=== PATIENT | female | born 1940 | race Caucasian/White ===

== ENCOUNTER → 2018-04-18 | Outpatient (CLI) | payer MEDICARE, OTHER ==
[~2018-04-18] MED LIST: ASPI-515 PO; FURO-93 PO; LISI5TAB7 PO; NICO-486 TD; POTA20TA91 PO; SPIR25TA PO
== END | disposition home or self-care (01) ==
LOC: ROC 12:52
PROVIDERS: ATTEND Radiology Radiation Oncology
DX: C44.90 Unspecified malignant neoplasm of skin, unspecified (principal)
CPT/HCPCS: G0463

== ENCOUNTER 2018-07-04 08:12 | Outpatient (CLI) | payer MEDICARE, OTHER | END 2018-07-04 23:59 | disposition home or self-care (01) | LOC: ROC 08:12 | PROVIDERS: ATTEND Radiology Radiation Oncology | DX: Z08 Encounter for follow-up examination after completed treatment for malignant neoplasm (principal); C44.622 Squamous cell carcinoma of skin of right upper limb, including shoulder; Z88.1 Allergy status to other antibiotic agents; Z88.5 Allergy status to narcotic agent | CPT/HCPCS: G0463 ==

== ENCOUNTER → 2018-08-23 | Outpatient (CLI) | payer MEDICARE, OTHER | END | disposition home or self-care (01) | LOC: EDSTATUS 07-12 07:30 → ROC 08:49 | PROVIDERS: ATTEND Radiology Radiation Oncology | DX: Z08 Encounter for follow-up examination after completed treatment for malignant neoplasm (principal); C44.622 Squamous cell carcinoma of skin of right upper limb, including shoulder; Z79.899 Other long term (current) drug therapy; Z79.01 Long term (current) use of anticoagulants; Z88.0 Allergy status to penicillin; Z88.2 Allergy status to sulfonamides | CPT/HCPCS: G0463 ==

== ENCOUNTER 2018-12-31 12:31 | Outpatient (CLI) | payer MEDICARE, OTHER | END 2018-12-31 23:59 | disposition home or self-care (01) | LOC: CFH 12:31 | PROVIDERS: ATTEND Radiology Radiation Oncology | DX: Z12.2 Encounter for screening for malignant neoplasm of respiratory organs (principal); I25.10 Atherosclerotic heart disease of native coronary artery without angina pectoris; Z87.891 Personal history of nicotine dependence | CPT/HCPCS: G0297 ==

== ENCOUNTER 2019-06-13 21:43 | Inpatient (IN) | payer MEDICARE, OTHER ==
[~2019-06-13] VITALS: Ht 157.5 cm; Wt 48.2 kg
--- NOTE | 2019-06-13 21:45 | NUR ---
PG AGILE DEVELOPER AHEAD OF TIME PER STEMI PRE ALERT OVER THE RADIO @2130 PG CARDS @2134 PG CODE CARDIAC @2136
[2019-06-13] MEDS ORDERED: APIX5TAB PO (21:56)
[2019-06-13] MEDS ORDERED: CARV3.1212 PO (21:56)
[2019-06-13] MEDS ORDERED: FURO-93 PO (21:56)
[2019-06-13] MEDS ORDERED: LISI2.5T PO (21:56)
[2019-06-13] MEDS ORDERED: FENTANYL PF 100 MCG/2ML ONE (21:56)
[2019-06-13] MEDS ORDERED: SPIR25TA5 PO (21:56)
[2019-06-13] MEDS ORDERED: LIDOCAINE 2%, 20ML ONE (21:57)
[2019-06-13] MEDS ORDERED: MIDAZOLAM 1 MG/ML, 5ML ONE (21:57)
[2019-06-13] MEDS ORDERED: VERAPAMIL 2.5 MG/ML, 2ML ONE (21:57)
[2019-06-13] MEDS ORDERED: HEPARIN 1,000 UNITS/ML, 10ML ONE (21:57)
[2019-06-13] MEDS ORDERED: TICAGRELOR 90 MG TABLET ONE (21:57)
[2019-06-13] MEDS ORDERED: BIVALIRUDIN 250 MG ONE (21:57)
[2019-06-13] MEDS ORDERED: SODIUM CHLORIDE FLUSH 10ML SYR IVF ONE (22:00)
--- NOTE | 2019-06-13 22:03 | NUR ---
CODE CARDIAC CANCELLED PER DR ROTHMAN
[2019-06-13 22:04] LABS: BASOPHILS # (AUTO) 0.07 x10^3/uL (0-0.1); BASOPHILS % (AUTO) 1 % (0-1); EOSINOPHILS # (AUTO) 0.11 x10^3/uL (0-0.4); EOSINOPHILS % (AUTO) 1 % (1-7); LYMPHOCYTES # (AUTO) 4.68 x10^3/uL (1-3.4); LYMPHOCYTES % (AUTO) 40 % (22-44); MD NO; MEAN CORPUSCULAR HEMOGLOBIN 32.7 pg (27.0-34.8); MEAN CORPUSCULAR HGB CONC 33.3 g/dL (32.4-35.8); MEAN CORPUSCULAR VOLUME 98.4 fL (80-100); MEAN PLATELET VOLUME 8.9 fL (7.4-10.4); MONOCYTES # (AUTO) 0.68 x10^3/uL (0.2-0.8); MONOCYTES % (AUTO) 6 % (2-9); NEUTROPHILS # (AUTO) 6.31 x10^3/uL (1.8-6.8); NEUTROPHILS % (AUTO) 53 % (42-75); PLATELET COUNT 237 x10^3/uL (130-400); RED BLOOD COUNT 4.52 x10^6/uL (3.82-5.3); RED CELL DISTRIBUTION WIDTH 13.9 % (9.6-15.2)
[2019-06-13] MEDS ORDERED: LORazepam 2 MG/ML, 1ML ONE (22:14)
[2019-06-13] MEDS ORDERED: methylPREDNISolone SOD SUCC 125 MG/2 ML ONE (22:14)
[2019-06-13 22:16] LABS: INTERNATIONAL NORMALIZED RATIO 0.99 (0.93-1.1); PROTHROMBIN TIME 10.5 Seconds (9.6-11.5)
[2019-06-13 22:18] LABS: ALBUMIN 3.8 g/dL (3.4-5.0); ANION GAP 8 mmol/L (5-15); CALCIUM 8.4 mg/dL (8.5-10.1); CHLORIDE 95 mmol/L (98-107)
[2019-06-13 22:23] LABS: ALANINE AMINOTRANSFERASE 37 U/L (12-78); ALKALINE PHOSPHATASE 92 U/L (45-117); BILIRUBIN,TOTAL 0.9 mg/dL (0.2-1.0); CREATININE 0.98 mg/dL (0.55-1.02); TOTAL PROTEIN 6.9 g/dL (6.4-8.2)
--- NOTE | 2019-06-13 22:25 | NUR ---
PT MEDICATED PER JUL. PT TOLERATING BIPAP WELL. [facility] WAS CALLED PER PTS REQUEST.
[2019-06-13] MEDS ORDERED: LORazepam 2 MG/ML, 1ML IVPush ONE (22:30)
[2019-06-13] MEDS ORDERED: methylPREDNISolone SOD SUCC 125 MG/2 ML IM ONE (22:30)
--- NOTE | 2019-06-13 22:30 | NUR ---
CONSULTED WITH . HE STATES NO ABX NEEDED AT THIS TIME.
[2019-06-13] MEDS ORDERED: FUROSEMIDE 40 MG/4 ML ONE (22:39)
--- NOTE | 2019-06-13 22:57 | NUR ---
FAMILY NOW AT BEDSIDE. POC DISCUSSED. FAMILY DENIES CURRENT NEEDS. PT RESTING COMFORTABLY AT THIS TIME.
[2019-06-13] MEDS ORDERED: ALBUTEROL/IPRATROPIUM 2.5MG/0.5MG, 3 ML NPPB SCH (23:00)
[2019-06-13] MEDS ORDERED: FUROSEMIDE 40 MG/4 ML IV ONE (23:00)
--- NOTE | 2019-06-13 23:02 | NUR ---
DR DESOUZA AT BEDSIDE
--- NOTE | 2019-06-13 23:45 | NUR ---
PT ASSISTED WITH BEDPAN. APPROX 300ML OUT. PT DENIES FURTHER NEEDS AT THIS TIME. AWAITING ADMIT BED.
[2019-06-13] MEDS ORDERED: ALBUTEROL/IPRATROPIUM 2.5MG/0.5MG, 3 ML ONE (23:53)
[2019-06-14] MEDS ORDERED: ACETAMINOPHEN 325 MG TABLET PO PRN
[2019-06-14] MEDS ORDERED: methylPREDNISolone SOD SUCC 125 MG/2 ML IVPush SCH
[2019-06-14] MEDS ORDERED: ENALAPRILAT 1.25 MG/ML, 2ML IVPush PRN
[2019-06-14] MEDS ORDERED: ONDANSETRON 2MG/ML, 2ML IVPush PRN
[2019-06-14] MEDS ORDERED: OMNIPAQUE 350 MG/ML, 100ML BOTTLE ONE (00:06)
--- NOTE | 2019-06-14 00:17 | NUR ---
REPORT GIVEN TO GURU CCU RN
[2019-06-14 00:45] VITALS: BP 118/54
[2019-06-14 04:00] VITALS: BP 100/47
[2019-06-14] MEDS: methylPREDNISolone SOD SUCC 125 MG/2 ML IVPush SCH ×4 (04:26→22:26)
[2019-06-14 04:34] LABS: BASOPHILS # (AUTO) 0.01 x10^3/uL (0-0.1); BASOPHILS % (AUTO) 0 % (0-1); EOSINOPHILS % (AUTO) 0 % (1-7); LYMPHOCYTES % (AUTO) 9 % (22-44); MD NO; MEAN CORPUSCULAR HEMOGLOBIN 32.4 pg (27.0-34.8); MEAN CORPUSCULAR HGB CONC 33.1 g/dL (32.4-35.8); MEAN CORPUSCULAR VOLUME 97.8 fL (80-100); MEAN PLATELET VOLUME 8.9 fL (7.4-10.4); MONOCYTES # (AUTO) 0.11 x10^3/uL (0.2-0.8); MONOCYTES % (AUTO) 2 % (2-9); NEUTROPHILS # (AUTO) 6.34 x10^3/uL (1.8-6.8); NEUTROPHILS % (AUTO) 90 % (42-75); PLATELET COUNT 217 x10^3/uL (130-400); RED CELL DISTRIBUTION WIDTH 13.2 % (9.6-15.2)
[2019-06-14 04:45] LABS: ANION GAP 9 mmol/L (5-15); CALCIUM 8.9 mg/dL (8.5-10.1); CHLORIDE 96 mmol/L (98-107); CHOLESTEROL, TOTAL 240 mg/dL (140-239); CREATININE 0.73 mg/dL (0.55-1.02); TRIGLYCERIDES 37 mg/dL (50-200); VLDL CHOLESTEROL 7 mg/dL (0-25)
[2019-06-14 04:50] LABS: CHOL/HDL RATIO 2.4; HDL CHOL % 42 % (28-40); HDL CHOLESTEROL (DIRECT) 100 mg/dL (40-60); LDL CHOLESTEROL,CALCULATED 133 mg/dL (54-169); LDL/HDL RATIO 1.3 (0.5-3.0)
[2019-06-14] MEDS: LISINOPRIL 5 MG TABLET PO SCH (08:25)
[2019-06-14] MEDS: FUROSEMIDE 20 MG/2 ML IV SCH ×2 (08:25→17:53)
[2019-06-14] MEDS: CARVEDILOL 3.125 MG TABLET PO SCH ×2 (08:26→22:24)
[2019-06-14] MEDS: SPIRONOLACTONE 25 MG TABLET PO SCH (09:00)
[2019-06-14] MEDS ORDERED: ASPIRIN 81 MG TABLET EC PO SCH (09:00)
[2019-06-14] MEDS ORDERED: APIXABAN 5 MG TABLET PO SCH ×2 (09:00→21:00)
[2019-06-14 11:05] LABS: TROPONIN I 0.217 ng/mL (0.000-0.045)
[2019-06-14 20:17] VITALS: BP 101/53
[2019-06-14 21:36] VITALS: BP 101/53
[2019-06-14] MEDS: ATORVASTATIN 40 MG TABLET PO SCH (22:25)
[2019-06-14 22:31] VITALS: BP 105/57
[2019-06-15 00:08] VITALS: BP 107/57
[2019-06-15] MEDS: methylPREDNISolone SOD SUCC 125 MG/2 ML IVPush SCH (04:43)
[2019-06-15 05:16] LABS: ANION GAP 11 mmol/L (5-15); CALCIUM 8.7 mg/dL (8.5-10.1); CHLORIDE 92 mmol/L (98-107)
[2019-06-15 05:19] LABS: CREATININE 0.88 mg/dL (0.55-1.02)
[2019-06-15] MEDS: FUROSEMIDE 20 MG/2 ML IV SCH (07:30)
[2019-06-15 07:34] VITALS: BP 112/59
[2019-06-15] MEDS ORDERED: REGADENOSON 0.4 MG/5 ML SYRINGE ONE (08:36)
[2019-06-15] MEDS: APIXABAN 2.5 MG TABLET PO SCH ×2 (10:30→22:47)
[2019-06-15] MEDS ORDERED: methylPREDNISolone SOD SUCC 40 MG/ML IVPush SCH (10:30)
[2019-06-15] MEDS: DOXYCYCLINE 100MG TABLET PO SCH ×2 (10:31→22:47)
[2019-06-15] MEDS: LISINOPRIL 5 MG TABLET PO SCH (10:31)
[2019-06-15] MEDS: CARVEDILOL 3.125 MG TABLET PO SCH (10:31)
[2019-06-15] MEDS: SPIRONOLACTONE 25 MG TABLET PO SCH (10:31)
[2019-06-15 16:24] VITALS: BP 100/52
[2019-06-15 19:36] VITALS: BP 108/44
[2019-06-15 20:00] VITALS: BP 111/54
[2019-06-15] MEDS ORDERED: CARVEDILOL 6.25 MG TABLET PO SCH (21:00)
[2019-06-15] MEDS: ATORVASTATIN 40 MG TABLET PO SCH (22:46)
[2019-06-15 22:57] VITALS: BP 112/57
[2019-06-16 02:22] VITALS: BP 95/51
[2019-06-16 07:01] VITALS: BP 110/63
[2019-06-16] MEDS: DOXYCYCLINE 100MG TABLET PO SCH (08:14)
[2019-06-16] MEDS: APIXABAN 2.5 MG TABLET PO SCH (08:15)
[2019-06-16] MEDS: SPIRONOLACTONE 25 MG TABLET PO SCH (08:15)
[2019-06-16] MEDS: LISINOPRIL 5 MG TABLET PO SCH (08:15)
[2019-06-16] MEDS ORDERED: FUROSEMIDE 20 MG/2 ML IV SCH (09:00)
[2019-06-16] MEDS ORDERED: FUROSEMIDE 40 MG TABLET PO SCH (09:00)
[2019-06-16] MEDS ORDERED: FURO40TA6 PO (09:28)
[2019-06-16] MEDS ORDERED: ATOR40TA78 PO (09:28)
[2019-06-16] MEDS ORDERED: PRED20TA PO (09:28)
[2019-06-16] MEDS ORDERED: APIX2.5T PO (09:28)
[2019-06-16] MEDS ORDERED: DOXY100T PO (09:28)
[2019-06-16] MEDS ORDERED: CARV6.2512 PO (09:28)
== END 2019-06-16 11:20 | disposition home or self-care (01) | DRG 291 ==
LOC: EDBD 21:43 → MERGE 21:59 → ED 21:59 → EDIP 22:48 → CCU 06-14 00:34 → 5SO 06-14 11:18 → DCLOUNGE 06-16 11:00
PROVIDERS: ADMIT Family Medicine; ATTEND Hospitalist
PROC: 5A09357 Assistance with Respiratory Ventilation, Less than 24 Consecutive Hours, Continuous Positive Airway Pressure (ICD-10-PCS; principal; 2019-06-13)
PROC: 5A09357 Assistance with Respiratory Ventilation, Less than 24 Consecutive Hours, Continuous Positive Airway Pressure (ICD-10-PCS; 2019-06-14)
DX: I11.0 Hypertensive heart disease with heart failure (principal); J96.01 Acute respiratory failure with hypoxia; E43 Unspecified severe protein-calorie malnutrition; E87.1 Hypo-osmolality and hyponatremia; D68.69 Other thrombophilia; I48.20 Chronic atrial fibrillation, unspecified; Z68.1 Body mass index [BMI] 19.9 or less, adult; I50.43 Acute on chronic combined systolic (congestive) and diastolic (congestive) heart failure; J43.9 Emphysema, unspecified; E78.5 Hyperlipidemia, unspecified; F17.210 Nicotine dependence, cigarettes, uncomplicated; I25.10 Atherosclerotic heart disease of native coronary artery without angina pectoris; I42.0 Dilated cardiomyopathy; I48.0 Paroxysmal atrial fibrillation; M19.90 Unspecified osteoarthritis, unspecified site; M41.9 Scoliosis, unspecified; I49.5 Sick sinus syndrome; R53.81 Other malaise; R73.9 Hyperglycemia, unspecified; F41.9 Anxiety disorder, unspecified; Z82.49 Family history of ischemic heart disease and other diseases of the circulatory system; Z90.710 Acquired absence of both cervix and uterus; Z90.49 Acquired absence of other specified parts of digestive tract; Z95.5 Presence of coronary angioplasty implant and graft; Z98.1 Arthrodesis status; Z99.81 Dependence on supplemental oxygen; Z95.0 Presence of cardiac pacemaker
CPT/HCPCS: 36415; 36600; 71045; 71275; 78452; 80047; 80048; 80053; 80061; 82803; 83036; 83735; 83880; 84100; 84484; 85025; 85610; 87081; 93005; 93017; 93306; 94640; 94660; 96372; 96374; 96375; G0378; J0583; J1644; J1940; J2250; J2785; J3010; Q9967; A9502; C9898; J2060; J2920; J2930; J7512